=== PATIENT | female | born 1980 | race Caucasian/White ===

== ENCOUNTER 2016-07-14 18:28 | Emergency (ER) | payer SELFPAY ==
[2016-07-14 18:41] VITALS: BP 136/83
--- NOTE | 2016-07-14 19:18 | UC ---
Respiratory Complaint HPI - HPI Summary HPI Summary: Pt has mild asthma, typically only uses albuterol a couple times per month. Has had coughing and head/chest congestion since early in June. In the last 2 days has noticed increase in coughing, wheezing, and difficulty breathing. Woke up in a sweat today. No known fevers. - History of Current Complaint Chief Complaint: UCGeneralIllness Stated Complaint: ASTHMA, AND CHEST CONGESTION Time Seen by Provider: 07/14/16 18:57 Hx Obtained From: Patient Hx Last Menstrual Period: 2 yrs; had ablasion ?: No Onset/Duration: Gradual Onset, Lasting Weeks Timing: Constant Severity Initially: Mild Severity Currently: Moderate Character: Cough: Productive Aggravating Factors: Deep Breaths, Recumbent Position Alleviating Factors: Upright Position Associated Signs And Symptoms: Positive: Dyspnea, Chills, Wheezing, URI, Nasal Congestion. Negative: Fever - Allergies/Home Medications Allergies/Adverse Reactions: Allergies Allergy/AdvReac Type Severity Reaction Status Date / Time Levofloxacin [From Levaquin] Allergy Rash Verified 05/20/16 14:39 Home Medications: Home Medications [id number] W/ APAP [Vicks Dayquil Severe Cold 8-83-850-325 mg] [History] PMH/Surg Hx/FS Hx/Imm Hx Endocrine History Of: Denies: Diabetes, Thyroid Disease, Hyperthyroidism, Hypothyroidism, Dyslipidemia Cardiovascular History Of: Denies: Cardiac Disorders, Hypertension, Pacemaker/ICD, Myocardial Infarction , Congestive Heart Failure, Atrial Fibrillation, Deep Vein Thrombosis, Bleeding Disorders Respiratory History Of: Reports: Asthma Denies: COPD GI/ History Of: Reports: Gastroesophageal Reflux Denies: Ulcer, Gastrointestinal Bleed, Gall Bladder Disease, Kidney Stones, Diverticulitis, Renal Disease, Urosepsis Neurological History Of: Denies: TIA, CVA, Dementia, Seizures, Migraine Psychological History Of: Reports: Anxiety Denies: Depression, Bipolar Disorder, Schizophrenia, Post Traumatic Stress Disorder Cancer History Of: Denies: Lung Cancer, Colorectal Cancer, Breast Cancer, Prostate Cancer, Cervical Cancer Other History Of: Negative For: HIV, Hepatitis B, Hepatitis C, Anticoagulant Therapy - Surgical History Surgical History: Yes Surgery Procedure, Year, and Place: tubal lIGATION, 2010, [facility] [place]. GALLBLADDER, 1999, [facility] [place]. appy 2009, [facility] [place]. Uterine Ablation - Family History Known Family History: Positive: Cardiac Disease - Open heart surgery ( grandfather), Hypertension - Social History Lives: With Family Alcohol Use: Occasionally Substance Use Type: None Smoking Status (MU): Heavy Every Day Tobacco Smoker Type: Cigarettes Amount Used/How Often: 1/2 PPD Household Exposure Type: Cigarettes - Immunization History Most Recent Influenza Vaccination: never Most Recent Tetanus Shot: up to date Review of Systems Constitutional: Negative Skin: Negative Eyes: Negative ENT: Negative Respiratory: Shortness Of Breath, Cough Cardiovascular: Negative Gastrointestinal: Negative Genitourinary: Negative Motor: Negative Neurovascular: Negative Musculoskeletal: Negative Neurological: Negative Psychological: Negative All Other Systems Reviewed And Are Negative: Yes Physical Exam Triage Information Reviewed: Yes Appearance: Well-Appearing, No Pain Distress, Obese Vital Signs: Initial Vital Signs Temp 99.7 F 07/14/16 18:36 Pulse 91 07/14/16 18:36 Resp 18 07/14/16 18:36 BP 136/83 07/14/16 18:36 Pulse Ox 97 07/14/16 18:36 Vital Signs Reviewed: Yes Eye Exam: Normal Eyes: Positive: Conjunctiva Clear ENT Exam: Normal ENT: Positive: Normal ENT inspection, Hearing grossly normal, Pharynx normal, TMs normal Dental Exam: Normal Neck exam: Normal Neck: Positive: Supple, Nontender, No Lymphadenopathy Respiratory: Positive: No respiratory distress, No accessory muscle use, Wheezing Cardiovascular Exam: Normal Cardiovascular: Positive: RRR, No Murmur Musculoskeletal Exam: Normal Neurological Exam: Normal Psychological Exam: Normal Skin Exam: Normal Diagnostic Evaluation - Laboratory O2 Sat by Pulse Oximetry: 97 Respiratory Course/Dx - Differential Dx/Diagnosis Provider Diagnoses: bronchitis. asthma exacerbation Discharge - Discharge Plan Condition: Stable Disposition: HOME Prescriptions: Albuterol 2.5MG/3ML (0.083%)* [Ventolin 2.5 MG/3 ML NEB.JESUS*] 2.5 mg INH Q4H PRN #20 neb.jesus PRN Reason: wheezing DOXYcycline CAP(*) [DOXYcycline 100MG CAP(*)] 100 mg PO BID #10 cap Fluticasone HFA 110 mcg(NF) [Flovent HFA 110 mcg(NF)] 2 puff INH BID #1 mdi predniSONE TAB* [Deltasone TAB*] 50 mg PO DAILY #3 tab Patient Education Materials: Bronchospasm (ED), Acute Bronchitis (ED) Referrals: No Primary Care Phys,NOPCP [Primary Care Provider] - Additional Instructions: Come back here if you do not see clear improvement within 48 hours of starting the prednisone.
== END 2016-07-14 19:18 | disposition home or self-care (01) ==
LOC: UCEAST 18:28
DX: J45.901 Unspecified asthma with (acute) exacerbation (principal); Z88.8 Allergy status to other drugs, medicaments and biological substances; F17.210 Nicotine dependence, cigarettes, uncomplicated
CPT/HCPCS: 99212; G0463

== ENCOUNTER 2016-10-22 23:58 | Emergency (ER) | payer SELFPAY ==
[2016-10-23] MEDS ORDERED: NS 0.9% 1000 ML* 1,000 ML IV SCH (02:00)
[2016-10-23 02:34] LABS: Hematocrit 43 % (35-47); Hemoglobin 14.6 g/dl (12.0-16.0); Mean Corpuscular HGB Conc 34 g/dl (31-36); Mean Corpuscular Hemoglobin 31 pg (27-31); Mean Corpuscular Volume 93 fL (80-97); Mean Platelet Volume 8 um3 (7.4-10.4); Red Blood Count 4.64 10^6/ul (4.0-5.4); Red Cell Distribution Width 13 % (10.5-15); White Blood Count 11.3 10^3/ul (3.5-10.8)
[2016-10-23 02:49] LABS: ALT 13 U/L (7-52); AST 12 U/L (13-39); Albumin 3.8 g/dL (3.2-5.2); Alkaline Phosphatase 36 U/L (34-104); Anion Gap 7 mmol/L (2-11); BUN/Creatinine Ratio 22.8 (8-20); Blood Urea Nitrogen 18 mg/dL (6-24); C Reactive Protein 9.29 mg/L (< 5.00); CO2 Carbon Dioxide 23 mmol/L (22-32); Chloride 106 mmol/L (101-111); Creatine Kinase 41 U/L (10-223); EGFR African American 106.5 (>60); EGFR Non-African American 82.8 (>60); Globulin 2.8 g/dL (2-4); Glucose 90 mg/dL (70-100); Lipase 38 U/L (11.0-82.0); Magnesium 1.8 mg/dL (1.9-2.7); Potassium 3.9 mmol/L (3.5-5.0); Sodium 136 mmol/L (133-145); Total Protein 6.6 g/dL (6.4-8.9)
[2016-10-23] MEDS ORDERED: Azithromycin TAB* 250 MG PO ONE (05:02)
[2016-10-23] MEDS ORDERED: predniSONE TAB* 20 MG PO ONE (05:02)
[2016-10-23 05:35] VITALS: BP 137/61
--- NOTE | 2016-10-23 08:04 | RAD ---
Indication: Shortness of breath. 2 views of the chest including dual energy PA views and straight no mediastinal shift. Heart is of normal size and configuration. Lung mauro are clear. IMPRESSION: No active cardiopulmonary disease is noted.
--- NOTE | 2016-10-23 08:41 | ED ---
James Neri Alok, scribed for Juancho Zhou MD on 10/23/16 at 0229 . Complex/Multi-Sys Presentation - HPI Summary HPI Summary: 36 y/o female presents to the ED for SOB and dizziness for the past 3 days. Pt states that following check up for dizzy spells off and on, she was dx with vertigo 3 days ago. Later that night pt states she experienced SOB worsening with supine position. Pt states her dizziness is still present as well described as room-spinning. Pt also notes upper back pain yesterday and a bruise on her left shoulder following IV treatment 3 day sago. Pt also notes right calf pain as well as slight CP and slight BIRCH on and off. PMHx includes h/ o asthma. Pt is allergic to Levofloxacin. - History Of Current Complaint Chief Complaint: EDShortnessOfBreath Time Seen by Provider: 10/23/16 01:47 Hx Obtained From: Patient Onset/Duration: Lasting Days, Still Present Timing: Intermittent, Lasting: Severity Currently: Moderate Severity Initially: Moderate Location: Pain At: - Upper back pain. Slight BIRCH. Slight CP. Right calf pain Aggravating Factor(s): Supine position aggravates SOB Associated Signs And Symptoms: Positive: Dizziness, Headache, SOB, Chest Pain, Back Pain - Allergies/Home Medications Allergies/Adverse Reactions: Allergies Allergy/AdvReac Type Severity Reaction Status Date / Time Levofloxacin [From Levaquin] Allergy Rash Verified 10/23/16 00:13 PMH/Surg Hx/FS Hx/Imm Hx Endocrine/Hematology History: Denies: Hx Anticoagulant Therapy, Hx Diabetes, Hx Thyroid Disease Cardiovascular History: Denies: Hx Congestive Heart Failure, Hx Deep Vein Thrombosis, Hx Hypertension , Hx Myocardial Infarction, Hx Pacemaker/ICD, Other Cardiovascular Problems/ Disorders Respiratory History: Reports: Hx Asthma Denies: Hx Chronic Obstructive Pulmonary Disease (COPD), Hx Lung Cancer, Other Respiratory Problems/Disorders GI History: Reports: Hx Gastroesophageal Reflux Disease, Hx Irritable Bowel Denies: Hx Gall Bladder Disease, Hx Gastrointestinal Bleed, Hx Ulcer, Hx Urosepsis, Other GI Disorders History: Denies: Hx Kidney Stones, Hx Renal Disease Musculoskeletal History: Denies: Other Musculoskeletal History Sensory History: Denies: Hx Contacts or Glasses Opthamlomology History: Denies: Hx Contacts or Glasses Neurological History: Denies: Hx Dementia, Hx Migraine, Hx Seizures, Hx Transient Ischemic Attacks (TIA), Other Neuro Impairments/Disorders Psychiatric History: Reports: Hx Anxiety Denies: Hx Depression, Hx Schizophrenia, Hx Bipolar Disorder - Surgical History Surgery Procedure, Year, and Place: [place], [place] [facility] [place] [facility] [place] [facility] [place] Uterine Ablation Hx Anesthesia Reactions: No Infectious Disease History: No Infectious Disease History: Denies: Hx Clostridium Difficile, Hx Hepatitis, Hx Human Immunodeficiency Virus (HIV), Hx of Known/Suspected MRSA, Hx Shingles, Hx Tuberculosis, Hx Known/ Suspected VRE, Hx Known/Suspected VRSA, History Other Infectious Disease, Traveled Outside the [place] in Last 30 Days - Family History Known Family History: Positive: Cardiac Disease - Open heart surgery ( grandfather), Hypertension - Social History Occupation: Unemployed Alcohol Use: Occasionally Hx Substance Use: No Substance Use Type: Reports: None Hx Tobacco Use: Yes Smoking Status (MU): Heavy Every Day Tobacco Smoker Type: Cigarettes Amount Used/How Often: 1/2 PPD Review of Systems Negative: Fever Positive: Chest Pain Positive: Shortness Of Breath Positive: Other - Right Calf pain Positive: Bruising - Left shoulder Neurological: Other - Dizziness Positive: Headache All Other Systems Reviewed And Are Negative: Yes Physical Exam Triage Information Reviewed: Yes Vital Signs On Initial Exam: Initial Vitals Temp Pulse Resp BP Pulse Ox 98.1 F 90 16 130/82 99 10/23/16 00:00 10/23/16 00:00 10/23/16 00:00 10/23/16 00:00 10/23/16 00:00 Vital Signs Reviewed: Yes Appearance: Positive: Well-Appearing, No Pain Distress Skin: Positive: Warm, Skin Color Reflects Adequate Perfusion, Dry, Other - Brusing left shoulder Head/Face: Positive: Normal Head/Face Inspection Eyes: Positive: EOMI, HELEN ENT: Positive: Normal ENT inspection Neck: Positive: Supple, Nontender Respiratory/Lung Sounds: Positive: Clear to Auscultation, Breath Sounds Present Cardiovascular: Positive: RRR Abdomen Description: Positive: Nontender, Soft Bowel Sounds: Positive: Present Musculoskeletal: Positive: Normal, Strength/ROM Intact Neurological: Positive: Normal, Sensory/Motor Intact, Alert, Oriented to Person Place, Time Psychiatric: Positive: Affect/Mood Appropriate Diagnostics - Vital Signs Vital Signs Temp Pulse Resp BP Pulse Ox 10/23/16 01:44 76 99 10/23/16 01:43 139/84 10/23/16 01:42 97.8 F 79 16 138/84 98 10/23/16 00:00 98.1 F 90 16 130/82 99 - Laboratory Lab Results: Lab Results 10/23/16 10/23/16 10/23/16 Range/Units 02:00 02:00 02:00 WBC 11.3 H (3.5-10.8) 10^3/ul RBC 4.64 (4.0-5.4) 10^6/ul Hgb 14.6 (12.0-16.0) g/dl Hct 43 (35-47) % MCV 93 (80-97) fL MCH 31 (27-31) pg MCHC 34 (31-36) g/dl RDW 13 (10.5-15) % Plt Count 230 (150-450) 10^3/ul MPV 8 (7.4-10.4) um3 Neut % (Auto) 69.7 (38-83) % Lymph % (Auto) 19.3 L (25-47) % Wright % (Auto) 3.8 (1-9) % Eos % (Auto) 3.4 (0-6) % Baso % (Auto) 3.8 H (0-2) % Absolute Neuts (auto) 7.9 H (1.5-7.7) 10^3/ul Absolute Lymphs (auto) 2.2 (1.0-4.8) 10^3/ul Absolute Monos (auto) 0.4 (0-0.8) 10^3/ul Absolute Eos (auto) 0.4 (0-0.6) 10^3/ul Absolute Basos (auto) 0.4 H (0-0.2) 10^3/ul Absolute Nucleated RBC 0.01 10^3/ul Nucleated RBC % 0 INR (Anticoag Therapy) 0.86 L (0.89-1.11) APTT 31.9 (26.0-36.3) seconds D-Dimer, Quantitative < 200 (Less Than 230) ng/mL Sodium 136 (133-145) mmol/L Potassium 3.9 (3.5-5.0) mmol/L Chloride 106 (101-111) mmol/L Carbon Dioxide 23 (22-32) mmol/L Anion Gap 7 (2-11) mmol/L BUN 18 (6-24) mg/dL Creatinine 0.79 (0.51-0.95) mg/dL Est GFR ( Amer) 106.5 (>60) Est GFR (Non-Af Amer) 82.8 (>60) BUN/Creatinine Ratio 22.8 H (8-20) Glucose 90 (70-100) mg/dL Calcium 9.0 (8.6-10.3) mg/dL Magnesium 1.8 L (1.9-2.7) mg/dL Total Bilirubin 0.30 (0.2-1.0) mg/dL AST 12 L (13-39) U/L ALT 13 (7-52) U/L Alkaline Phosphatase 36 (34-104) U/L Total Creatine Kinase 41 (10-223) U/L CK-MB (CK-2) 1.0 (0.6-6.3) ng/mL Troponin I 0.00 (<0.04) ng/mL C-Reactive Protein 9.29 H (< 5.00) mg/L B-Natriuretic Peptide ( - 100) pg/mL Total Protein 6.6 (6.4-8.9) g/dL Albumin 3.8 (3.2-5.2) g/dL Globulin 2.8 (2-4) g/dL Albumin/Globulin Ratio 1.4 (1-3) Lipase 38 (11.0-82.0) U/L Beta HCG, Quant < 0.60 mIU/mL 10/23/16 Range/Units 02:00 WBC (3.5-10.8) 10^3/ul RBC (4.0-5.4) 10^6/ul Hgb (12.0-16.0) g/dl Hct (35-47) % MCV (80-97) fL MCH (27-31) pg MCHC (31-36) g/dl RDW (10.5-15) % Plt Count (150-450) 10^3/ul MPV (7.4-10.4) um3 Neut % (Auto) (38-83) % Lymph % (Auto) (25-47) % Wright % (Auto) (1-9) % Eos % (Auto) (0-6) % Baso % (Auto) (0-2) % Absolute Neuts (auto) (1.5-7.7) 10^3/ul Absolute Lymphs (auto) (1.0-4.8) 10^3/ul Absolute Monos (auto) (0-0.8) 10^3/ul Absolute Eos (auto) (0-0.6) 10^3/ul Absolute Basos (auto) (0-0.2) 10^3/ul Absolute Nucleated RBC 10^3/ul Nucleated RBC % INR (Anticoag Therapy) (0.89-1.11) APTT (26.0-36.3) seconds D-Dimer, Quantitative (Less Than 230) ng/mL Sodium (133-145) mmol/L Potassium (3.5-5.0) mmol/L Chloride (101-111) mmol/L Carbon Dioxide (22-32) mmol/L Anion Gap (2-11) mmol/L BUN (6-24) mg/dL Creatinine (0.51-0.95) mg/dL Est GFR ( Amer) (>60) Est GFR (Non-Af Amer) (>60) BUN/Creatinine Ratio (8-20) Glucose (70-100) mg/dL Calcium (8.6-10.3) mg/dL Magnesium (1.9-2.7) mg/dL Total Bilirubin (0.2-1.0) mg/dL AST (13-39) U/L ALT (7-52) U/L Alkaline Phosphatase (34-104) U/L Total Creatine Kinase (10-223) U/L CK-MB (CK-2) (0.6-6.3) ng/mL Troponin I (<0.04) ng/mL C-Reactive Protein (< 5.00) mg/L B-Natriuretic Peptide 11 ( - 100) pg/mL Total Protein (6.4-8.9) g/dL Albumin (3.2-5.2) g/dL Globulin (2-4) g/dL Albumin/Globulin Ratio (1-3) Lipase (11.0-82.0) U/L Beta HCG, Quant mIU/mL Result Diagrams: 10/23/16 02:00 10/23/16 02:00 Lab Statement: Any lab studies that have been ordered have been reviewed, and results considered in the medical decision making process. - Radiology CXR Xray Interpretation: No Acute Changes Radiology Interpretation Completed By: ED Physician - Dr. Zhou - EKG 0310 Cardiac Rate: NL - 75 bpm EKG Rhythm: Sinus Rhythm Ectopy: None EKG Interpretation: Flattened T-waves in anterior leads Re-Evaluation - Re-Evaluation First Eval Re-Evaluation Time: 05:00 Change: Unchanged Comment: Discussed Lab results with pt Complex Multi-Symp Course/Dx Course Of Treatment: NO CRITICAL CARE TIME. Assessment/Plan: PATIENT'S SOB STARTED APPROX 12 HOURS AFTER IV REMOVAL. DISCUSSED RESULTS WITH PATIENT. DISCHARGE HOME STABLE. - Diagnoses Provider Diagnoses: Dyspnea Discharge - Discharge Plan Condition: Stable Disposition: HOME Prescriptions: Azithromycin TAB* [Zithromax TAB (Z-EMILIANO) 250 mg #6 tabs] 250 mg PO DAILY #4 tab predniSONE TAB* [Deltasone TAB*] 40 mg PO DAILY #8 tab Patient Education Materials: Dyspnea (ED) Referrals: [facility] [place] [Outside] Non Staff,Doctor [Primary Care Provider] - Additional Instructions: FOLLOW UP WITH YOUR DOCTOR. RETURN TO THE EMERGENCY DEPARTMENT FOR ANY WORSENING OF YOUR CONDITION; CHEST PAIN, FEVER, SHORTNESS OF BREATH, YOU FEEL ILL OR QUESTIONS OR CONCERNS. The documentation as recorded by the James avery Alok accurately reflects the service I personally performed and the decisions made by me, Juancho Zhou MD.
== END 2016-10-23 05:34 | disposition home or self-care (01) ==
LOC: ED 23:58
DX: R06.00 Dyspnea, unspecified (principal); R06.02 Shortness of breath; J45.909 Unspecified asthma, uncomplicated; R42 Dizziness and giddiness; R07.9 Chest pain, unspecified; M79.661 Pain in right lower leg; R51 Headache; F17.210 Nicotine dependence, cigarettes, uncomplicated; Z88.1 Allergy status to other antibiotic agents; Z32.02 Encounter for pregnancy test, result negative
CPT/HCPCS: 36415; 71020; 80053; 82550; 82553; 83690; 83735; 83880; 84484; 84702; 85025; 85379; 85610; 85730; 86140; 93005; 99283; A9270-GY; J7512

== ENCOUNTER 2016-10-30 01:22 | Emergency (ER) | payer SELFPAY ==
--- NOTE | 2016-10-30 01:46 | ED ---
Pat Neri Anna, scribed for Humberto Spann MD on 10/30/16 at 0136 . Dizziness - HPI Summary HPI Summary: Patient is a 36 y/o female coming to [facility] presenting with the sudden onset of intermittent dizziness that began that began 30 minutes ago. She additionally felt lightheadedness, palpitations, nausea, and left-sided chest discomfort. She describes the severity of her symptoms as 4/10. She reports that she was dx with vertigo last week and was given prescriptions for this. She has been taking the medications once in a while but did not take the medication tonight following the symptoms. Patient medications were reviewed this visit. 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 [employer] Severity Initially: Moderate Severity Currently: Moderate Character: Dizzy Associated Signs And Symptoms: Positive: Nausea, Chest Pain, Palpitations - Allergies/Home Medications Allergies/Adverse Reactions: Allergies Allergy/AdvReac Type Severity Reaction Status Date / Time Levofloxacin [From Levaquin] Allergy Rash Verified 10/23/16 00:13 PMH/Surg Hx/FS Hx/Imm Hx Endocrine/Hematology History: Denies: Hx Anticoagulant Therapy, Hx Diabetes, Hx Thyroid Disease Cardiovascular History: Denies: Hx Congestive Heart Failure, Hx Deep Vein Thrombosis, Hx Hypertension , Hx Myocardial Infarction, Hx Pacemaker/ICD, Other Cardiovascular Problems/ Disorders Respiratory History: Reports: Hx Asthma Denies: Hx Chronic Obstructive Pulmonary Disease (COPD), Hx Lung Cancer, Other Respiratory Problems/Disorders GI History: Reports: Hx Gastroesophageal Reflux Disease, Hx Irritable Bowel Denies: Hx Gall Bladder Disease, Hx Gastrointestinal Bleed, Hx Ulcer, Hx Urosepsis, Other GI Disorders History: Denies: Hx Kidney Stones, Hx Renal Disease Musculoskeletal History: Denies: Other Musculoskeletal History Sensory History: Denies: Hx Contacts or Glasses Opthamlomology History: Denies: Hx Contacts or Glasses Neurological History: Denies: Hx Dementia, Hx Migraine, Hx Seizures, Hx Transient Ischemic Attacks (TIA), Other Neuro Impairments/Disorders Psychiatric History: Reports: Hx Anxiety Denies: Hx Depression, Hx Schizophrenia, Hx Bipolar Disorder - Surgical History Surgery Procedure, Year, and Place: tubal [place]IG[place], [place], [facility] [place], 1999, [facility] [place]. [place], [facility] [place] Uterine Ablation Hx Anesthesia Reactions: No Infectious Disease History: No Infectious Disease History: Denies: Hx Clostridium Difficile, Hx Hepatitis, Hx Human Immunodeficiency Virus (HIV), Hx of Known/Suspected MRSA, Hx Shingles, Hx Tuberculosis, Hx Known/ Suspected VRE, Hx Known/Suspected VRSA, History Other Infectious Disease, Traveled Outside the [place] in Last 30 Days - Family History Known Family History: Positive: Cardiac Disease - Open heart surgery ( grandfather), Hypertension - Social History Alcohol Use: Occasionally Hx Substance Use: No Substance Use Type: Reports: None Hx Tobacco Use: Yes Smoking Status (MU): Heavy Every Day Tobacco Smoker Type: Cigarettes Amount Used/How Often: 1/2 PPD Review of Systems Positive: Palpitations, Chest Pain Positive: Nausea Neurological: Other - dizziness, lightheadedness All Other Systems Reviewed And Are Negative: Yes Physical Exam Triage Information Reviewed: Yes Vital Signs On Initial Exam: Initial Vitals Temp Pulse Resp BP Pulse Ox 97.3 F 103 19 143/89 100 10/30/16 01:23 10/30/16 01:23 10/30/16 01:23 10/30/16 01:23 10/30/16 01:23 Vital Signs Reviewed: Yes Appearance: Positive: Well-Appearing, No Pain Distress Skin: Positive: Warm Head/Face: Positive: Normal Head/Face Inspection Eyes: Positive: HELEN ENT: Positive: Hearing grossly normal Neck: Positive: Supple Respiratory/Lung Sounds: Positive: Breath Sounds Present Cardiovascular: Positive: RRR Abdomen Description: Positive: Nontender, Soft Bowel Sounds: Positive: Present Musculoskeletal: Positive: Strength/ROM Intact Neurological: Positive: Sensory/Motor Intact, Alert, Oriented to Person Place, Time, Normal Gait Psychiatric: Positive: Affect/Mood Appropriate Diagnostics - Vital Signs Vital Signs Temp Pulse Resp BP Pulse Ox 10/30/16 01:25 97.3 F 105 18 143/89 100 10/30/16 01:23 97.3 F 103 19 143/89 100 - Laboratory Lab Statement: Any lab studies that have been ordered have been reviewed, and results considered in the medical decision making process. - EKG 0149 Cardiac Rate: NL - 88 bpm EKG Rhythm: Sinus Rhythm ST Segment: Normal Ectopy: None Re-Evaluation - Re-Evaluation First Eval Change: Improved Dizzy Course/Dx - Course Assessment/Plan: Patient is a 36 y/o female coming to [facility] presenting with the sudden onset of intermittent dizziness that began that began 30 minutes ago. EKG reveals NSR at 88 bpm. Patient refuses lab work. She will be discharged home with follow up from her primary care physician. - Diagnoses Provider Diagnoses: Dizziness Discharge - Discharge Plan Condition: Stable Disposition: HOME Patient Education Materials: Vertigo (ED), Dizziness (ED) Referrals: [facility] [place] [Outside] Additional Instructions: Follow up with primary care physician within 48 hours. Return to the Emergency Department for new or worsening symptoms. The documentation as recorded by the Pat avery Anna accurately reflects the service I personally performed and the decisions made by me, Humberto Spann MD.
[2016-10-30 02:58] VITALS: BP 126/84
== END 2016-10-30 03:00 | disposition home or self-care (01) ==
LOC: ED 01:22
DX: R42 Dizziness and giddiness (principal); K21.9 Gastro-esophageal reflux disease without esophagitis; F17.210 Nicotine dependence, cigarettes, uncomplicated
CPT/HCPCS: 93005; 99282

== ENCOUNTER 2017-02-03 11:30 | Emergency (ER) | payer BC ==
[2017-02-03 11:51] VITALS: BP 140/72
--- NOTE | 2017-02-03 12:19 | UC ---
Back Pain HPI - HPI Summary HPI Summary: 37 Y/O female presents for C/O low back pain after her partner lifted her up yesterday. Denies incontinence of bowel or bladder. Denies numbness in upper or lower extremities. Ambulatory without loss of balance. H/O back pain. Blood pressure is elevated at this visit. Ms Holly denies history of hypertension. Most likely blood pressure is due to current injury and pain. Pt agrees to recheck blood pressure and follow up with primary medical provided should it continue to be elevated. - History of Current Complaint Chief Complaint: UCBackPain Stated Complaint: BACK INJURY Time Seen by Provider: 02/03/17 12:07 Hx Obtained From: Patient Hx Last Menstrual Period: ablasion ?: No Onset/Duration: Sudden Onset Timing: Constant Severity Initially: Moderate Severity Currently: Moderate Pain Intensity: 7 Pain Scale Used: 0-10 Numeric Character: Sharp, Burning Aggravating: Movement Alleviating: Rest Associated Signs And Symptoms: Positive: Negative Related History: Previous Back Injury - Risk Factors AAA Risk Factors: Negative TAD Risk Factors: Negative Cauda Equina Risk Factors: Negative Epidural Abscess Risk Factors: Negative - Allergies/Home Medications Allergies/Adverse Reactions: Allergies Allergy/AdvReac Type Severity Reaction Status Date / Time Levofloxacin [From Levaquin] Allergy Rash Verified 10/23/16 00:13 PMH/Surg Hx/FS Hx/Imm Hx Previously Healthy: Yes Other History Of: Negative For: HIV, Hepatitis B, Hepatitis C, Anticoagulant Therapy - Surgical History Surgical History: Yes Surgery Procedure, Year, and Place: tubal lIGATION, 2010, [facility] [place]. GALL[place]DER, 1999, [facility] [place]. appy 2009, [facility] [place]. Uterine Ablation - Family History Known Family History: Positive: Cardiac Disease - Open heart surgery ( grandfather), Hypertension - Social History Alcohol Use: Rare Substance Use Type: None Smoking Status (MU): Heavy Every Day Tobacco Smoker Type: Cigarettes Amount Used/How Often: 1/2 PPD Household Exposure Type: Cigarettes - Immunization History Most Recent Influenza Vaccination: never Most Recent Tetanus Shot: up to date Review of Systems Constitutional: Negative Skin: Negative Eyes: Negative ENT: Negative Respiratory: Negative Cardiovascular: Negative Gastrointestinal: Negative Genitourinary: Negative Motor: Negative Neurovascular: Negative Musculoskeletal: Negative Neurological: Negative Psychological: Negative All Other Systems Reviewed And Are Negative: Yes Physical Exam Triage Information Reviewed: Yes Appearance: Well-Appearing Vital Signs: Initial Vital Signs Temp 97.9 F 02/03/17 11:47 Pulse 76 02/03/17 11:47 Resp 18 02/03/17 11:47 BP 140/72 02/03/17 11:47 Pulse Ox 100 02/03/17 11:47 Vital Signs Reviewed: Yes Eye Exam: Normal Respiratory Exam: Normal Respiratory: Positive: Lungs clear Cardiovascular Exam: Normal Cardiovascular: Positive: RRR Musculoskeletal: Positive: Strength Intact Neurological Exam: Normal Psychological Exam: Normal Skin Exam: Normal Back Pain Course/Dx - Differential Dx/Diagnosis Differential Diagnosis/HQI/PQRI: Herniated Disc, Strain, Sprain Provider Diagnoses: Muscle strain Discharge - Discharge Plan Condition: Stable Disposition: HOME Patient Education Materials: Low Back Strain (ED) Referrals: Non Staff,Doctor [Primary Care Provider] - Jackson Ramirez MD [Medical Doctor] - Additional Instructions: Follow up with Dr Ramirez for continued pain or worsening symptoms. Return to ER if you experience numbness to extremities, bladder or bowel incontinence. May use ice / heat as tolerated for pain. Take Ibuprofen as directed.
== END 2017-02-03 13:00 | disposition home or self-care (01) ==
LOC: UCEAST 11:30
DX: S39.012A Strain of muscle, fascia and tendon of lower back, initial encounter (principal); Z88.3 Allergy status to other anti-infective agents; F17.210 Nicotine dependence, cigarettes, uncomplicated; X58.XXXA Exposure to other specified factors, initial encounter
CPT/HCPCS: 99212; G0463

== ENCOUNTER 2017-02-10 11:56 | Emergency (ER) | payer BC ==
[2017-02-10 12:36] VITALS: BP 139/83
--- NOTE | 2017-02-10 13:14 | UC ---
Lower Extremity/Ankle HPI - History of Current Complaint Chief Complaint: UCLowerExtremity Stated Complaint: TOE INJURY Time Seen by Provider: 02/10/17 12:52 Hx Obtained From: Patient Hx Last Menstrual Period: ablasion ?: No Onset/Duration: Sudden Onset - door opened onto R great toenail and ripped it off Severity Initially: Severe Severity Currently: Moderate Aggravating Factor(s): Standing, Ambulation Alleviating Factor(s): Rest, Elevation Able to Bear Weight: Yes - with pain - Allergies/Home Medications Allergies/Adverse Reactions: Allergies Allergy/AdvReac Type Severity Reaction Status Date / Time Levofloxacin [From Levaquin] Allergy Rash Verified 02/10/17 12:35 PMH/Surg Hx/FS Hx/Imm Hx Previously Healthy: Yes Respiratory History: Asthma Other History Of: Negative For: HIV, Hepatitis B, Hepatitis C, Anticoagulant Therapy - Surgical History Surgical History: Yes Surgery Procedure, Year, and Place: tubal [place]IGATION, 2010, [facility] [place] G[place]ADDER, 1999, [facility] [place]. app[place] 2009, [facility] [place] Uterine Ablation - Family History Known Family History: Positive: Cardiac Disease - Open heart surgery ( grandfather), Hypertension - Social History Occupation: Employed Full-time Lives: With Family Alcohol Use: Rare Substance Use Type: None Smoking Status (MU): Heavy Every Day Tobacco Smoker Type: Cigarettes Amount Used/How Often: 1/2 PPD Household Exposure Type: Cigarettes Cessation Counseling: Patient Advised to Stop - Immunization History Most Recent Influenza Vaccination: never Most Recent Tetanus Shot: up to date Review of Systems Constitutional: Negative Respiratory: Negative Cardiovascular: Negative Musculoskeletal: Other: - R great toe pain Neurological: Negative Psychological: Negative All Other Systems Reviewed And Are Negative: Yes Physical Exam Triage Information Reviewed: Yes Appearance: Well-Appearing, No Pain Distress, Obese Vital Signs: Initial Vital Signs Temp 97.3 F 02/10/17 12:31 Pulse 77 02/10/17 12:31 Resp 18 02/10/17 12:31 BP 139/83 02/10/17 12:31 Pulse Ox 100 02/10/17 12:31 Vital Signs Reviewed: Yes Respiratory Exam: Normal Cardiovascular Exam: Normal Musculoskeletal: Positive: Strength Intact, ROM Intact Neurological Exam: Normal Psychological Exam: Normal Skin Exam: Other - R great toenail partially avulsed, minor swelling. no ecchymosis or gross deformity joint Lower Extremity Course/Dx - Differential Dx/Diagnosis Differential Diagnosis/HQI/PQRI: Contusion, Fracture (Closed), Other - nail avulsion Provider Diagnoses: partial R great toe nail avulsion Discharge - Discharge Plan Condition: Good Disposition: HOME Patient Education Materials: Nail Avulsion (ED) Additional Instructions: Ice and elevate R foot use shoe given to you for 3-5 days keep wound clean and dry and apply antibacterial ointment once daily report signs of infection
== END 2017-02-10 13:20 | disposition home or self-care (01) ==
LOC: UCEAST 11:56
DX: S91.201A Unspecified open wound of right great toe with damage to nail, initial encounter (principal); W22.8XXA Striking against or struck by other objects, initial encounter; Y93.9 Activity, unspecified; Y99.9 Unspecified external cause status
CPT/HCPCS: 99212; G0463

== ENCOUNTER 2017-02-15 13:02 | Emergency (ER) | payer BC ==
--- NOTE | 2017-02-15 14:29 | UC ---
Lower Extremity/Ankle HPI - HPI Summary HPI Summary: 37 yo female c/o R great toe increasing pain, redness, swelling over the last several days. Significantly on Sunday, she was seen in [facility] for avulsed toenail 2/2 trip and pulled toenail off. Toenail replaced onto bed, but above sx continued. No fever / chills. No hx diabetes (clarification from xray order ). Has been wearing flip flops. No other injury or redness. - History of Current Complaint Chief Complaint: UCLowerExtremity Stated Complaint: WOUND ON TOE Time Seen by Provider: 02/15/17 14:19 Hx Obtained From: Patient Hx Last Menstrual Period: ablasion - Allergies/Home Medications Allergies/Adverse Reactions: Allergies Allergy/AdvReac Type Severity Reaction Status Date / Time Levofloxacin [From Levaquin] Allergy Rash Verified 02/15/17 13:33 Home Medications: Home Medications Ranitidine TAB (NF) [Zantac TAB (NF)] 02/15/17 [History] PMH/Surg Hx/FS Hx/Imm Hx Previously Healthy: Yes Other History Of: Negative For: HIV, Hepatitis B, Hepatitis C, Anticoagulant Therapy - Surgical History Surgical History: Yes Surgery Procedure, Year, and Place: tubal [place]IG[place], 2010, [facility] [place], 1999, [facility] [place]. [place], [facility] [place] Uterine Ablation - Family History Known Family History: Positive: Cardiac Disease - Open heart surgery ( grandfather), Hypertension - Social History Alcohol Use: Rare Substance Use Type: None Smoking Status (MU): Heavy Every Day Tobacco Smoker Type: Cigarettes Amount Used/How Often: 1/2 PPD Household Exposure Type: Cigarettes - Immunization History Most Recent Influenza Vaccination: never Most Recent Tetanus Shot: up to date Review of Systems Constitutional: Negative Skin: Negative Eyes: Negative ENT: Negative Respiratory: Negative Cardiovascular: Negative Gastrointestinal: Negative Genitourinary: Negative Motor: Other - see hpi Neurovascular: Other - see hpi Musculoskeletal: Other: - see hpi Neurological: Negative Psychological: Negative All Other Systems Reviewed And Are Negative: Yes Physical Exam Triage Information Reviewed: Yes Appearance: Well-Appearing, Well-Nourished Vital Signs: Initial Vital Signs Temp 97.4 F 02/15/17 13:34 Pulse 82 02/15/17 13:34 Resp 16 02/15/17 13:34 BP 142/85 02/15/17 13:34 Pulse Ox 100 02/15/17 13:34 Vital Signs Reviewed: Yes Eye Exam: Normal ENT Exam: Normal Respiratory Exam: Normal - no tachypnea / no dyspnea Cardiovascular Exam: Normal - normal rate, good color, good pulses Abdominal Exam: Normal - no c/o's Musculoskeletal Exam: Other - see skin exam Neurological Exam: Normal - distal sensation present LT Psychological Exam: Normal Skin Exam: Other - R great toenail discolored, appears to be avulsing. + fungal dermatitis present to great toe, extending to intrigenous remaining toes. + R great distal toe cellulitis, mild redness and swelling. Not frankly fluctuant. CR good. Distal sens present LT. DP/PT 2+ equal. Lower Extremity Course/Dx - Course Course Of Treatment: Reviewed xray / xray report with pt. Tet utd per pt (<5yrs ). Reviewed instructions with pt. Questions answered to the best of my ability. - Differential Dx/Diagnosis Provider Diagnoses: avulsed toenail. fungal dermatitis. cellulitis Discharge - Discharge Plan Condition: Stable Disposition: HOME Prescriptions: Cephalexin CAP* [Keflex 500 CAP*] 500 mg PO TID #21 cap Fluconazole [Diflucan 150 MG (NF)] 150 mg PO DAILY #2 tab Mupirocin 2% OINT* [Bactroban 2 % Oint*] 1 applic TOPICAL BID #1 tube Terbinafine [Lamisil Advanced] 1 % TOPICAL BID #1 tube Patient Education Materials: Athlete's Foot (ED), Cellulitis (ED), Nail Avulsion (ED) Referrals: [facility] [place]YSICIAN REFERRAL [Outside] Additional Instructions: Follow up with primary care physician as soon as you are able. Please seek medical care for worse or new problems in the meantime. Cam boot or flat shoe for the next 7 days, if possible. Replace flip flops. Eat yogurt and / or probiotic every day while taking antibiotic.
--- NOTE | 2017-02-15 14:43 | RAD ---
HISTORY: Diabetes, right great toe injury COMPARISONS: None VIEWS: 3, Frontal, lateral, and oblique views of the right foot FINDINGS: BONE DENSITY: Normal. BONES: There is no displaced fracture. JOINTS: There is no arthropathy. ALIGNMENT: There is no dislocation. SOFT TISSUES: Unremarkable. OTHER FINDINGS: None. IMPRESSION: NO ACUTE OSSEOUS INJURY. IF SYMPTOMS PERSIST, RECOMMEND REPEAT IMAGING.
[2017-02-15 15:41] VITALS: BP 130/79
== END 2017-02-15 15:07 | disposition home or self-care (01) ==
LOC: UCEAST 13:02
DX: S91.201A Unspecified open wound of right great toe with damage to nail, initial encounter (principal); L03.031 Cellulitis of right toe; W22.09XA Striking against other stationary object, initial encounter; Y93.9 Activity, unspecified; Y99.9 Unspecified external cause status; B35.1 Tinea unguium; Z88.1 Allergy status to other antibiotic agents
CPT/HCPCS: 99213; G0463

== ENCOUNTER 2017-03-03 01:52 | Emergency (ER) | payer BC ==
[2017-03-03] MEDS ORDERED: oxyCODONE/Acetamin 5/325 MG* TAB PO ONE (05:26)
[2017-03-03] MEDS ORDERED: HYDROcodone/ACETAMIN 5-325 MG* 1 TAB PO ONE (06:41)
[2017-03-03 07:07] VITALS: BP 112/62
--- NOTE | 2017-03-03 07:37 | ED ---
Pilar Neri Emily, scribed for Ludwin Enrique MD on 03/03/17 at 0644 . Lower Extremity - HPI Summary HPI Summary: This patient is a 37 year old F presenting to [facility] with a chief complaint of RLE pain that began with a fall around 0000. She fell out of a bathtub and landed on right hip. Pt is not able to ambulate. The pain radiates from her right hip to her right thigh and knee. The CC is described as aching and throbbing. The patient rates the pain 10/10 in severity. Symptoms aggravated by movement. Patient denies back pain. - History of Current Complaint Chief Complaint: EDExtremityLower Stated Complaint: FALL//RIGHT SIDED PAIN Hx Obtained From: Patient Hx Last Menstrual Period: ablasion Mechanism Of Injury: Fall From A Standing Position Onset of Pain: Immediate Onset/Duration: Hours Severity Initially: Severe Severity Currently: Severe Pain Intensity: 8 Pain Scale Used: 0-10 Numeric Timing: Constant Location: Radiates To - Right thigh and knee Character Of Pain: Aching, Throbbing Aggravating Factor(s): Movement - Allergies/Home Medications Allergies/Adverse Reactions: Allergies Allergy/AdvReac Type Severity Reaction Status Date / Time Levofloxacin [From Levaquin] Allergy Rash Verified 03/03/17 05:07 PMH/Surg Hx/FS Hx/Imm Hx Previously Healthy: No Endocrine/Hematology History: Denies: Hx Anticoagulant Therapy, Hx Diabetes, Hx Thyroid Disease Cardiovascular History: Denies: Hx Congestive Heart Failure, Hx Deep Vein Thrombosis, Hx Hypertension , Hx Myocardial Infarction, Hx Pacemaker/ICD, Other Cardiovascular Problems/ Disorders Respiratory History: Reports: Hx Asthma Denies: Hx Chronic Obstructive Pulmonary Disease (COPD), Hx Lung Cancer, Other Respiratory Problems/Disorders GI History: Reports: Hx Gastroesophageal Reflux Disease, Hx Irritable Bowel Denies: Hx Gall Bladder Disease, Hx Gastrointestinal Bleed, Hx Ulcer, Hx Urosepsis, Other GI Disorders History: Denies: Hx Kidney Stones, Hx Renal Disease Musculoskeletal History: Denies: Other Musculoskeletal History Sensory History: Denies: Hx Contacts or Glasses Opthamlomology History: Denies: Hx Contacts or Glasses Neurological History: Denies: Hx Dementia, Hx Migraine, Hx Seizures, Hx Transient Ischemic Attacks (TIA), Other Neuro Impairments/Disorders Psychiatric History: Reports: Hx Anxiety Denies: Hx Depression, Hx Schizophrenia, Hx Bipolar Disorder - Surgical History Surgery Procedure, Year, and Place: tubal lIGATION, 2011, [facility] [place]. GALLBLADDER, 1999, [facility] [place]. appy 2009, [facility] [place]. Uterine Ablation Hx Anesthesia Reactions: No - Immunization History Date of Tetanus Vaccine: utd Date of Influenza Vaccine: none Infectious Disease History: No Infectious Disease History: Denies: Hx Clostridium Difficile, Hx Hepatitis, Hx Human Immunodeficiency Virus (HIV), Hx of Known/Suspected MRSA, Hx Shingles, Hx Tuberculosis, Hx Known/ Suspected VRE, Hx Known/Suspected VRSA, History Other Infectious Disease, Traveled Outside the [place] in Last 30 Days - Family History Known Family History: Positive: Cardiac Disease - Open heart surgery ( grandfather), Hypertension - Social History Occupation: Unemployed Lives: Alone Alcohol Use: None Hx Substance Use: No Substance Use Type: Reports: None Hx Tobacco Use: Yes Smoking Status (MU): Heavy Every Day Tobacco Smoker Type: Cigarettes Amount Used/How Often: 1/2 PPD Review of Systems Negative: Fever Positive: Other - Positive RLE pain. Negative back pain. All Other Systems Reviewed And Are Negative: Yes Physical Exam - Summary Physical Exam Summary: The patient is well-nourished. Mild distress. Obese. The skin is warm and dry and skin color reflects adequate perfusion. Ecchymosis on right thigh. HEENT: The head is normocephalic and atraumatic. The pupils are equal and reactive. The conjunctivae are clear and without drainage. Nares are patent and without drainage. Mouth reveals moist mucous membranes and the throat is without erythema and exudate. The external ears are intact. The ear canals are patent and without drainage. The tympanic membranes are intact. Neck is supple with full range of motion and non-tender. There are no carotid bruits. There is no neck vein distension. Respiratory: Chest is non-tender. Lungs are clear to auscultation and breath sounds are symmetrical and equal. Cardiovascular: Heart is regular rate and rhythm. There is no murmur or rub auscultated. There is no peripheral edema and pulses are symmetrical and equal. Musculoskeletal: There is no back pain noted. There is good capillary refill. There is no peripheral edema or calf tenderness elicited. Tenderness in right hip, thigh, and knee. Limited flexion of right knee. Pain in mid shaft of right femur. Pain in right patella. Neurological: Patient is alert and oriented to person, place and time. The patient has symmetrical motor strength in all four extremities. Cranial nerves are grossly intact. Deep tendon reflexes are symmetrical and equal in all four extremities. Psychiatric: The patient has an appropriate affect and does not exhibit any anxiety or depression. Triage Information Reviewed: Yes Vital Signs On Initial Exam: Initial Vitals Temp Pulse Resp BP Pulse Ox 97 F 102 16 144/85 100 03/03/17 01:54 03/03/17 01:54 03/03/17 01:54 03/03/17 01:54 03/03/17 01:54 Vital Signs Reviewed: Yes - [place] Coma Scale Coma Scale Total: 15 Diagnostics - Vital Signs Vital Signs Temp Pulse Resp BP Pulse Ox 03/03/17 04:06 95 16 128/89 100 03/03/17 01:54 97 F 102 16 144/85 100 - Laboratory Lab Statement: Any lab studies that have been ordered have been reviewed, and results considered in the medical decision making process. Lower Extremity Course/Dx - Course Course Of Treatment: This patient is a 37 year old F presenting to [facility] with a chief complaint of RLE pain that began with a fall around 0000. She fell out of a bathtub and landed on right hip. Pt is not able to ambulate. The pain radiates from her right hip to her right thigh and knee. The CC is described as aching and throbbing. The patient rates the pain 10/10 in severity. Symptoms aggravated by movement. Patient denies back pain. Physical Exam Findings. Mild distress. Obese. Did not examine abd. Tenderness in right hip, thigh, and knee. Decreased ROM. Limited flexion of right knee. Pain in mid shaft of right femur. Pain in right patella. Ecchymosis on right thigh. Medical Decision Making. Femur X-Ray read by ED physician is normal, no fracture. Knee X-Ray read by ED physician is normal, no fracture. Hip/Pelvis X-Ray read by ED physician is normal, no fracture. In the ED course the patient was given Hickman and Percocet. Patient will be discharged with prescription for Hickman and follow up with [facility] [place] Physician Referral. The patient is agreeable with this plan. - Diagnoses Differential Diagnosis/HQI/PQRI: Positive: Contusion, Dislocation, Fracture ( Closed) Provider Diagnoses: Contusion of right leg Discharge - Discharge Plan Condition: Stable Disposition: HOME Prescriptions: Hydrocodone-Acetaminophen [Hickman 5-325 mg] 1 tab PO QID PRN #20 tab MDD 4 PRN Reason: pain Patient Education Materials: Contusion in Adults (ED), Hydrocodone/ Acetaminophen (By mouth) Forms: *Work Release Referrals: [facility] [place] PHYSICIAN REFERRAL [Outside] - 3 Days The documentation as recorded by the Pilar avery Emily accurately reflects the service I personally performed and the decisions made by me, Ludwin Enrique MD.
--- NOTE | 2017-03-03 09:51 | RAD ---
INDICATION: Right hip and knee pain after falling out of the shadow or. COMPARISON: None TECHNIQUE: 3 views of the right hip, 4 views of the right femur and 4 views of the right knee were obtained. FINDINGS: Surgical clips are seen overlying the bilateral pelvis most consistent with tubal ligation clips. The visualized bones of the right hip, femur and right knee are well-corticated and properly aligned. The joint spaces are normal. There is no radiographic evidence of acute fracture or dislocation. There is no radiographically apparent effusion of the hip or knee. IMPRESSION: No radiographically apparent fracture of the right hip, femur or knee. If the patient's symptoms persist follow-up imaging is recommended.
== END 2017-03-03 07:07 | disposition home or self-care (01) ==
LOC: ED 01:52
DX: S80.11XA Contusion of right lower leg, initial encounter (principal); W18.2XXA Fall in (into) shower or empty bathtub, initial encounter; Y92.9 Unspecified place or not applicable; J45.909 Unspecified asthma, uncomplicated; F41.9 Anxiety disorder, unspecified; K21.9 Gastro-esophageal reflux disease without esophagitis; K58.9 Irritable bowel syndrome, unspecified; F17.210 Nicotine dependence, cigarettes, uncomplicated
CPT/HCPCS: 99283; A9270-GY

== ENCOUNTER 2017-05-25 18:32 | Emergency (ER) | payer MEDICAID ==
[2017-05-25 18:39] VITALS: BP 138/83
--- NOTE | 2017-05-25 19:25 | UC ---
Rectal Pain HPI - HPI Summary HPI Summary: 37 year old female with no significant pmhx here with complaint of rectal pain. Reports symptoms started after episodes of diarrhea one month ago. Started with small rectal hemorrhoids swelling but worsened over the course of the past few weeks. Noticed blood when she wiped about one month but no rectal bleeding now. No fever or chills. - History Of Current Complaint Chief Complaint: UCGI Stated Complaint: PERSONAL Time Seen by Provider: 05/25/17 18:45 Hx Last Menstrual Period: 2 yrs ago Onset/Duration: Gradual Onset, Lasting Weeks Severity Initially: Mild Location Of Pain: Rectal Character: Sharp Aggravating Factor(s): Bowel Movement Alleviating Factor(s): Sitz Bath, Suppositories Associated Signs And Symptoms: Positive: External Hemorrhoid Related History: Similar Episode/Dx As - Allergies/Home Medications Allergies/Adverse Reactions: Allergies Allergy/AdvReac Type Severity Reaction Status Date / Time Levofloxacin [From Levaquin] Allergy Rash Verified 05/25/17 18:39 Home Medications: Home Medications NK [No Home Medications Reported] 05/25/17 [History Confirmed 05/25/17] PMH/Surg Hx/FS Hx/Imm Hx Other History Of: Negative For: HIV, Hepatitis B, Hepatitis C, Anticoagulant Therapy - Surgical History Surgical History: Yes Surgery Procedure, Year, and Place: tubal lIGATION, 2010, [facility] [place]. GALLBLADDER, 1999, [facility] [place]. appy 2009, [facility] [place]. Uterine Ablation - Family History Known Family History: Positive: Cardiac Disease - Open heart surgery ( grandfather), Hypertension - Social History Alcohol Use: None Substance Use Type: None Smoking Status (MU): Heavy Every Day Tobacco Smoker Type: Cigarettes Amount Used/How Often: 1/2 PPD Household Exposure Type: Cigarettes - Immunization History Most Recent Influenza Vaccination: never Most Recent Tetanus Shot: up to date Review of Systems Constitutional: Negative Skin: Negative Eyes: Negative ENT: Negative Respiratory: Negative Cardiovascular: Negative Gastrointestinal: Negative, Other - hemorrhoids Genitourinary: Negative Motor: Negative Neurovascular: Negative Musculoskeletal: Negative Neurological: Negative Psychological: Negative All Other Systems Reviewed And Are Negative: Yes Physical Exam Triage Information Reviewed: Yes Appearance: Well-Appearing Vital Signs: Initial Vital Signs Temp 36.3 C 05/25/17 18:35 Pulse 93 05/25/17 18:35 Resp 18 05/25/17 18:35 BP 138/83 05/25/17 18:35 Pulse Ox 100 05/25/17 18:35 Eye Exam: Normal ENT Exam: Normal Dental Exam: Normal Neck exam: Normal Neck: Positive: 1 Respiratory Exam: Normal Cardiovascular Exam: Normal Abdominal Exam: Normal Abdomen Description: Positive: Other: - rectal exam with 2cm hemorrhoids with no evidence thrombosis no fissure, Musculoskeletal Exam: Normal Neurological Exam: Normal Psychological Exam: Normal Skin Exam: Normal Rectal Pain Course/Dx - Differential Dx/Diagnosis Differential Diagnosis/HQI/PQRI: Hemorrhoid(s) Provider Diagnoses: Hemorrhoids Discharge - Discharge Plan Condition: Good Disposition: HOME Patient Education Materials: Hemorrhoids (ED) Referrals: No Primary Care Phys,NOPCP [Primary Care Provider] - Additional Instructions: Continue using preparation H and sitz bath. Call your insurance company to find primary care doctor near you.
== END 2017-05-25 19:23 | disposition home or self-care (01) ==
LOC: UCEAST 18:32
DX: K64.4 Residual hemorrhoidal skin tags (principal); F17.210 Nicotine dependence, cigarettes, uncomplicated
CPT/HCPCS: 99211; G0463